=== PATIENT | male | born 1965 | race Caucasian/White ===

== ENCOUNTER 2018-05-30 11:55 | Emergency (ER) | payer OTHER ==
[~2018-05-30] VITALS: Ht 167.6 cm; Wt 86.2 kg
[2018-05-30] MEDS ORDERED: ALBU8HFA4 (12:03)
== END 2018-05-30 12:18 | disposition home or self-care (01) ==
LOC: ER 11:55
DX: H10.9 Unspecified conjunctivitis (principal); J06.9 Acute upper respiratory infection, unspecified; I10 Essential (primary) hypertension; J44.9 Chronic obstructive pulmonary disease, unspecified; Z88.0 Allergy status to penicillin
CPT/HCPCS: 99283; A4663

== ENCOUNTER 2018-07-04 04:02 | Emergency (ER) | payer OTHER ==
[~2018-07-04] VITALS: Ht 167.6 cm; Wt 86.2 kg
[~2018-07-04 04:02] MED LIST: ALBU8HFA4
[2018-07-04] MEDS ORDERED: LEVOFLOXACIN 750 MG TABLET PO ONE (04:30)
[2018-07-04] MEDS ORDERED: VANCOMYCIN IV 1,000 MG in IV DEXTROSE 5% 250 ML IV ONE (04:30)
--- NOTE | 2018-07-04 04:30 | NUR ---
Pt. ambulated into ED, c/o R hand pain, R hand is swollen, red, w/ abscess, pt. reports using a "dirty needle" for injectable IV methamphetamines, A/Ox3, pt. is drowsy but arousable, denies SOB/CP/HERNÁNDEZ/F/C/N/V,
[2018-07-04] MEDS ORDERED: LEVOFLOXACIN 750 MG TABLET ONE (04:32)
[2018-07-04] MEDS ORDERED: VANCOMYCIN IV 200 ML ONE (04:32)
--- NOTE | 2018-07-04 06:50 | NUR ---
Patient discharged to home in stable conditon. Written and verbal after care instructions given. Patient verbalizes understanding of instructions. Pt. d/c to home w/ prescriptions per MD order, no acute distress,
[2018-07-04 06:51] VITALS: BP 162/93
== END 2018-07-04 06:52 | disposition home or self-care (01) ==
LOC: ER 04:06
DX: L03.113 Cellulitis of right upper limb (principal); I10 Essential (primary) hypertension; J44.9 Chronic obstructive pulmonary disease, unspecified; F17.200 Nicotine dependence, unspecified, uncomplicated; F15.10 Other stimulant abuse, uncomplicated; Z88.0 Allergy status to penicillin
CPT/HCPCS: 73130; 96365; 96366; 99285; J3370; A4663

== ENCOUNTER 2018-07-07 20:04 | Emergency (ER) | payer OTHER ==
[~2018-07-07] VITALS: Ht 167.6 cm; Wt 86.2 kg
[2018-07-07] MEDS ORDERED: VANCOMYCIN IV 1,000 MG in IV DEXTROSE 5% 250 ML IV ONE (20:30)
[2018-07-07] MEDS ORDERED: VANCOMYCIN IV 200 ML ONE (20:38)
[2018-07-07] MEDS ORDERED: diphenhydrAMINE 50 MG/1 ML VIAL IV ONE (21:45)
[2018-07-07] MEDS ORDERED: diphenhydrAMINE 50 MG/1 ML VIAL ONE (21:48)
[2018-07-07 23:07] VITALS: BP 119/74
== END 2018-07-07 23:08 | disposition home or self-care (01) ==
LOC: ER 20:05
DX: L03.113 Cellulitis of right upper limb (principal); F17.200 Nicotine dependence, unspecified, uncomplicated; F15.10 Other stimulant abuse, uncomplicated; F12.10 Cannabis abuse, uncomplicated; F14.10 Cocaine abuse, uncomplicated; Z88.0 Allergy status to penicillin
CPT/HCPCS: 96365; 96366; 96375; 99285; J1200; J3370; A4663

== ENCOUNTER 2018-07-08 15:01 | Emergency (ER) | payer OTHER ==
[~2018-07-08] VITALS: Ht 167.6 cm; Wt 86.2 kg
--- NOTE | 2018-07-08 15:50 | NUR ---
Dr Cleary at the bedside for MSE.
[2018-07-08] MEDS ORDERED: VANCOMYCIN IV 200 ML ONE (15:58)
[2018-07-08] MEDS ORDERED: VANCOMYCIN IV 1,000 MG in IV DEXTROSE 5% 250 ML IV ONE (16:00)
--- NOTE | 2018-07-08 17:40 | NUR ---
Wound measuring done and dressing applied per MD request.
--- NOTE | 2018-07-08 18:10 | NUR ---
Spoke to Rep from [facility], and they spoke to hand surgeon for pt to be admitted/transfered to one of their facilities. Awaiting call back. Dinner provided for pt, ate w/ great appetite.
--- NOTE | 2018-07-08 18:30 | NUR ---
Dr Cleary spoke to Dr Jimenez @ [facility].
--- NOTE | 2018-07-08 18:45 | NUR ---
Hands off report given to fast food shift lead RN.
--- NOTE | 2018-07-08 19:05 | NUR ---
RECEIVED REPORT PATIENT REASSESSED, VSS, C/O PAIN IN RIGHT ARM 05/30, PATIENT TO BE TRANSFERRED FOR HAND SURGEON, [facility] CALLED WAITING FOR ACCEPTANCE, ER NOTIFIED OF PATIENT C/O FOR PAIN.
--- NOTE | 2018-07-08 19:25 | NUR ---
PATIENT REASSESSED BY DR CRUZ, PATIENT SLEEPING, ORDER FOR PAIN MEDS CANCELLED.
--- NOTE | 2018-07-08 20:28 | NUR ---
Jeanette from [facility] [facility] called to give ETA for transport @[phone]
--- NOTE | 2018-07-08 20:35 | NUR ---
REPORT CALLED TO [facility] BRUCE CANSECO. TRANSPORTATION ARRANGED, ETA [phone].
--- NOTE | 2018-07-08 20:38 | NUR ---
Accepting physician is Dr. Polo.
[2018-07-08] MEDS ORDERED: HYDROCODONE/APAP 10-325 MG TABLET PO ONE (21:15)
[2018-07-08] MEDS ORDERED: HYDROCODONE/APAP 10-325 MG TABLET ONE (21:24)
--- NOTE | 2018-07-08 21:29 | NUR ---
REPORT GIVEN TO AMBULANCE PERSONEL, PATIENT MEDICATED TO NORCO 10MG PO PRIOR TO DEPARTURE, VSS, NO DISTRESS NOTED AT TIME OF DISCHARGE.
== END 2018-07-08 21:40 | disposition short-term general hospital (02) ==
LOC: ER 15:02
DX: L03.113 Cellulitis of right upper limb (principal); L02.413 Cutaneous abscess of right upper limb; F17.200 Nicotine dependence, unspecified, uncomplicated; F12.10 Cannabis abuse, uncomplicated; F14.10 Cocaine abuse, uncomplicated; Z88.0 Allergy status to penicillin
CPT/HCPCS: 73200; 87070; 96365; 96366; 99285; J3370; A4663

== ENCOUNTER 2018-08-31 18:00 | Inpatient (IN) | payer OTHER ==
[~2018-08-31] VITALS: Ht 170.2 cm; Wt 86.2 kg
[~2018-08-31 18:00] MED LIST changes: +BREO ELLIPTA 200-25 MCG INH
[2018-08-31] MEDS ORDERED: IPRATROPIUM BROMIDE 0.5 MG/2.5 ML NEBU ONE (18:05)
[2018-08-31] MEDS ORDERED: ALBUTEROL SULFATE 2.5 MG/ 0.5 ML NEBU ONE (18:05)
[2018-08-31] MEDS ORDERED: methylPREDNISolone SOD SUCC 125 MG/2 ML VIAL IV ONE (18:15)
[2018-08-31] MEDS ORDERED: ALBUTEROL SULFATE 2.5 MG/3 ML NEBU NEB ONE (18:15)
[2018-08-31] MEDS ORDERED: IPRATROPIUM BROMIDE 0.5 MG/2.5 ML NEBU NEB ONE (18:15)
[2018-08-31] MEDS ORDERED: IV NORMAL SALINE 1000 ML BAG IV ONE ×2 (18:15→20:15)
[2018-08-31] MEDS ORDERED: TERBUTALINE SULFATE 1 MG/1 ML VIAL SQ ONE (18:15)
[2018-08-31] MEDS ORDERED: MAGNESIUM SULFATE 2 GM in IV DEXTROSE 5% 100 ML IV ONE (18:15)
[2018-08-31] MEDS ORDERED: TERBUTALINE SULFATE 1 MG/1 ML VIAL ONE (18:22)
[2018-08-31] MEDS ORDERED: methylPREDNISolone SOD SUCC 125 MG/2 ML VIAL ONE (18:22)
[2018-08-31 18:32] LABS: BASOPHILS # (AUTO) 0.2 K/uL (0.0-8.0); BASOPHILS % (AUTO) 1.1 % (0.0-2.0); EOSINOPHILS % (AUTO) 13.3 % (0.0-7.0); HEMATOCRIT 44.7 % (36.7-47.1); HEMOGLOBIN 15.9 g/dL (12.5-16.3); LYMPHOCYTES # (AUTO) 3.3 K/uL (20.0-40.0); LYMPHOCYTES % (AUTO) 21.6 % (20.5-51.5); MEAN CORPUSCULAR HEMOGLOBIN 31.9 uug (23.8-33.4); MEAN CORPUSCULAR HGB CONC 36 g/dL (32.5-36.3); MEAN CORPUSCULAR VOLUME 89.7 fL (73.0-96.2); MONOCYTES # (AUTO) 0.9 K/uL (2.0-10.0); MONOCYTES % (AUTO) 5.9 % (0.0-11.0); NEUTROPHILS # (AUTO) 8.9 K/uL (1.8-8.9); NEUTROPHILS % (AUTO) 58.1 % (38.5-71.5); PLATELET COUNT (AUTO) 213 K/uL (152-348); RED BLOOD CELL COUNT(AUTO) 4.99 MIL/uL (4.06-5.63); WHITE BLOOD COUNT (AUTO) 15.3 K/uL (3.6-10.2)
[2018-08-31 18:36] LABS: POTASSIUM 4.4 mmol/L (3.5-5.1)
[2018-08-31] MEDS ORDERED: MAGNESIUM SULFATE 1 GM/2 ML VIAL ONE (18:41)
--- NOTE | 2018-08-31 18:42 | NUR ---
PLACED PT ON BIPAP DUE TO IMPENDING RESP FAILURE. CONTINUOUS TX ALSO GIVEN AND PT LOOKED MORE STABLE NOW, ABG TO FOLLOW POST 45 MINUTES.
[2018-08-31 18:52] LABS: BILIRUBIN,DIRECT 0.1 mg/dL (0.0-0.2); BILIRUBIN,TOTAL 0.4 mg/dL (0.2-1.0); TOTAL PROTEIN, SERUM 8.2 g/dL (6.4-8.2)
[2018-08-31] MEDS ORDERED: MEROPENEM 1,000 MG in IV NORMAL SALINE 250 ML IV ONE (19:00)
[2018-08-31] MEDS ORDERED: VANCOMYCIN 1G/D5W 200 ML PIGGYBACK IV ONE (19:00)
[2018-08-31] MEDS ORDERED: VANCOMYCIN IV 200 ML ONE (19:09)
--- NOTE | 2018-08-31 19:12 | NUR ---
Patient is still for blood cultures draw, IV antibiotic therapy, ABG results & urine sample. Dr Evans said to draw the bloodcultures before starting the IV Vancomycin. Nursing hands off report given to HARLEEN Rios.
[2018-08-31 19:19] LABS: ETHANOL < 3 MG/DL (0-0)
[2018-08-31 19:25] LABS: ABG BASE EXCESS -4.4 mmol/L; ABG HCO3 21.5 mmol/L; ABG PCO2 42.7 mmHg (35.0-45.0); ABG PO2 168.3 mmHg (75.0-100.0); ABG SITE RIGHT RADIAL; VENT MODE BIPAP
--- NOTE | 2018-08-31 19:40 | NUR ---
ABG DONE ON BIPAP 15/5 ON 35%FIO2, NOT 100%FIO2
[2018-08-31] MEDS ORDERED: ASPIRIN 300 MG RECTAL SUPP RC ONE (19:45)
--- NOTE | 2018-08-31 19:46 | NUR ---
Pt. admitted to ccu , under care of Hair Rice NP. Dx: Acute Respiratory Failure/COPD Exacerbation Belongs List completed
--- NOTE | 2018-08-31 19:47 | NUR ---
Assumed care of pt., received report from Rebecca,
--- NOTE | 2018-08-31 20:11 | NUR ---
Gave report to Mariam, pt. to admit to CCU-4
--- NOTE | 2018-08-31 20:15 | NUR ---
Per ED MD, pt. does not meet "code sepsis" criteria, not sepsis.
--- NOTE | 2018-08-31 20:35 | NUR ---
Pt. taken off unit, admitted to CCU-4, no acute distress,
--- NOTE | 2018-08-31 20:50 | NUR ---
Admitted to CCU Room 4 per haider accompanied by ER staff. Services of [employer]/ALYCIA Rice, Dx: COPD exacerbation, acute respiratory failure. Pt lethargic, arousable, appears comfortable on BiPap. Routine CCU admission care rendered. Please see CCU admission profile. ALYCIA Rice notified of admission. No family or significant other available at this time.
[2018-08-31 21:00] VITALS: BP 147/69
[2018-08-31] MEDS ORDERED: ALBUTEROL SULFATE 2.5 MG/ 0.5 ML NEBU NEB PRN (21:00)
[2018-08-31] MEDS ORDERED: ACETAMINOPHEN 325 MG TABLET PO PRN (21:00)
[2018-08-31] MEDS ORDERED: IPRATROPIUM BROMIDE 0.5 MG/2.5 ML NEBU NEB PRN (21:00)
[2018-08-31] MEDS ORDERED: ZOLPIDEM 5 MG TABLET PO PRN (21:00)
[2018-08-31] MEDS ORDERED: ONDANSETRON 4 MG/2 ML VIAL IV PRN (21:00)
[2018-08-31] MEDS ORDERED: HYDROCODONE/APAP 5-325MG TABLET PO PRN (21:00)
[2018-08-31] MEDS ORDERED: MAGNESIUM HYDROXIDE 30 ML LIQUID UDC PO PRN (21:00)
--- NOTE | 2018-08-31 21:00 | NUR ---
Confirmed with TECHNICAL STENOGRAPHER need to infuse NS 1.7L more per ER MD order, carried out. New IV access established at left upper arm, site patent.
[2018-08-31 21:30] VITALS: BP 126/66
--- NOTE | 2018-08-31 21:30 | NUR ---
After adequate explanations, Arora cath Fr.16 was inserted atraumatically and aseptically with immediate return of clear eva urine; pt tolerated procedure well.
[2018-08-31] MEDS ORDERED: MEROPENEM 1 G VIAL IV ONE (21:55)
[2018-08-31 22:00] VITALS: BP 135/87
[2018-08-31] MEDS ORDERED: ENOXAPARIN SODIUM 40 MG/0.4 ML DISP.SYRIN SQ ONE (22:00)
[2018-08-31 22:30] VITALS: BP 132/72
--- NOTE | 2018-08-31 22:30 | NUR ---
ALYCIA Rice here for pt evaluation. Condition update given, also made aware of critical/increasing trends of troponin and lactic acid. No new orders at this time.
--- NOTE | 2018-08-31 22:45 | NUR ---
Pt's sister Bg called in for update, will be in to see pt in AM.
[2018-08-31 23:00] VITALS: BP 130/61
[2018-08-31] MEDS: methylPREDNISolone SOD SUCC 125 MG/2 ML VIAL IV SCH (23:15)
[2018-08-31 23:59] VITALS: BP 131/62
[2018-09-01] VITALS (20 sets, daily range): BP systolic 119–162; BP diastolic 59–81
[2018-09-01] MEDS: IV NS 1000 ML 1,000 ML IV PRN ×2 (00:13→13:55)
--- NOTE | 2018-09-01 00:30 | NUR ---
Continues to rest comfortably. Monitor SR with no ectopy. Stable VS. Aspiration precautions and nursing comfort measures observed at all times.
[2018-09-01 01:11] LABS: *BILIRUBIN,URIN NEGATIVE (NEGATIVE); *BLOOD, URINE Trace-intact (NEGATIVE); *CLARITY,URINE CLEAR (CLEAR); *COLOR,URINE YELLOW (YELLOW); *KETONES,URINE TRACE (NEGATIVE); *PROTEIN,URINE 1+ (NEGATIVE); *UROBILINOGEN,URINE 0.2 E.U./dl (NORMAL); LEUKOCYTE ESTERASE ,URINE NEGATIVE (NEGATIVE); NITRITE, URINE NEGATIVE (NEGATIVE); PH,URINE 5.5 (5.0-8.0); UGLUCOSE TRACE (NEGATIVE)
[2018-09-01 01:16] LABS: BACTERIA,URINE NONE SEEN /HPF (NONE SEEN); MUCUS,URINE FEW /LPF (0-FEW); RED BLOOD CELL CASTS,URINE 0-3 /LPF (NONE SEEN); SQUAMOUS EPITHELIAL CELL,UR FEW /HPF (NONE SEEN)
--- NOTE | 2018-09-01 04:30 | NUR ---
Lab works drawn by lab, very hard stick. Easier to arouse, helps turn/reposition in bed. Noted to guard the BiPap well. Admits to sleeping better with the BiPap. Informed of ALYCIA Rice's plan to do sleep studies as an outpatient.
[2018-09-01 04:57] LABS: BASOPHILS % (AUTO) 0.1 % (0.0-2.0); EOSINOPHILS % (AUTO) 0.3 % (0.0-7.0); HEMOGLOBIN 13.9 g/dL (12.5-16.3); LYMPHOCYTES # (AUTO) 0.9 K/uL (20.0-40.0); LYMPHOCYTES % (AUTO) 17.8 % (20.5-51.5); MEAN CORPUSCULAR HEMOGLOBIN 31.6 uug (23.8-33.4); MEAN CORPUSCULAR HGB CONC 35 g/dL (32.5-36.3); MEAN CORPUSCULAR VOLUME 91.1 fL (73.0-96.2); MONOCYTES # (AUTO) 0.1 K/uL (2.0-10.0); NEUTROPHILS # (AUTO) 4.3 K/uL (1.8-8.9); NEUTROPHILS % (AUTO) 80.8 % (38.5-71.5); PLATELET COUNT (AUTO) 168 K/uL (152-348); RED BLOOD CELL COUNT(AUTO) 4.39 MIL/uL (4.06-5.63); WHITE BLOOD COUNT (AUTO) 5.3 K/uL (3.6-10.2)
[2018-09-01 05:06] LABS: CREATININE 0.9 mg/dL (0.6-1.3); MAGNESIUM 2.2 mg/dL (1.8-2.4); PHOSPHOROUS 2.2 mg/dL (2.5-4.9); POTASSIUM 4.1 mmol/L (3.5-5.1)
[2018-09-01] MEDS: methylPREDNISolone SOD SUCC 125 MG/2 ML VIAL IV SCH ×3 (05:39→21:07)
[2018-09-01 06:19] LABS: *AMPHETAMINE, URINE POSITIVE (NEGATIVE); *BARBITURATE, URINE NEGATIVE (NEGATIVE); *CANNABINOID, URINE NEGATIVE (NEGATIVE); *COCCAINE, URINE NEGATIVE (NEGATIVE); *OPIATE, URINE POSITIVE (NEGATIVE); *PHENCYCLIDINE SCREEN,URINE NEGATIVE (NEGATIVE)
--- NOTE | 2018-09-01 06:30 | NUR ---
General condition unchanged. Stable rhythm and VS. Remains comfortable on BiPap. Please see CCU flowsheet for trends and clinical data.
--- NOTE | 2018-09-01 07:30 | NUR ---
Report received from Jackelyn CANSECO, 53 yr old male was admitted on 08/31/18 for acute exacerbation of COPD. on BIPAP all night.IV fluid NS infusing at 75ml/hr Addendum: 09/01/18 at 0854 by VINOD PEREZ RN Amended: Links added.
--- NOTE | 2018-09-01 08:30 | NUR ---
placed on o2 2liters nasal cannula. post breathing treatment Addendum: 09/01/18 at 0916 by VINOD PEREZ RN Amended: Links added.
--- NOTE | 2018-09-01 09:40 | NUR ---
PT WAS TAKEN OFF BIPAP AFTER IN LINE TX. PT IS AWAKE, ALERT AND RESPONSIVE WITH NO DISTRESS. HARLEEN BROCK INFORMED AND AGREED WITH WEANING. WILL MONITOR PT CLOSELY
--- NOTE | 2018-09-01 11:22 | NUR ---
Call to ALYCIA gaston diet order. orders received.cardiac diet order ed Addendum: 09/01/18 at 1128 by VINOD PEREZ RN Amended: Links added.
--- NOTE | 2018-09-01 12:00 | NUR ---
now, tele status. cardiac tray ordered for lunch. remains lethargic. prefers to sleep than eat Addendum: 09/01/18 at 1241 by VINOD PEREZ RN Amended: Links added.
[2018-09-01 13:40] LABS: ABG BASE EXCESS -1.2 mmol/L; ABG HCO3 23.3 mmol/L; ABG PCO2 38.7 mmHg (35.0-45.0); ABG PH 7.398 (7.350-7.450); ABG PO2 63.5 mmHg (75.0-100.0); ABG SITE RIGHT RADIAL; ABG TOTAL HEMOGLOBIN 14.6 G/dL (13.5-18.0); COHb 1.4 % (0.5-1.5); MetHb 0.3 % (0.0-1.5); O2Hb 92.3 % (94.0-97.0); VENT MODE Nasal Cannula
--- NOTE | 2018-09-01 14:11 | NUR ---
seen by dr durand. stat abg done on 2 liters nasal cannula. Addendum: 09/01/18 at 1416 by VINOD PEREZ RN Amended: Links added. Addendum: 09/01/18 at 1417 by VINOD PEREZ RN Amended: Links added.
--- NOTE | 2018-09-01 14:17 | NUR ---
awake and hungry. lunch tray served Addendum: 09/01/18 at 1417 by VINOD PEREZ RN Amended: Links added.
--- NOTE | 2018-09-01 15:25 | NUR ---
Received patient from CCU, patient alert and oriented x 4, not in any form of distress. Noted with oxygen support at 2lpm via nasal cannula, tolerated and maintained, oxygen saturation at 98%. With ongoing IVF at IV access at right antecubital vein, infusing well. Noted with another IV access at left upper arm to saline lock, patent and intact. With Arora catheter to urine bag, draining clear yellow urine. Noted with SCD on both legs, maintained. Oriented to unit. Bed in low position, side rails up x 2, call light within reach. will continue to monitor. Respiratory therapist informed of transfer so they can continue patient's breathing treatments.
--- NOTE | 2018-09-01 15:26 | NUR ---
[facility]. Patient ambulated to the room report given to Velma CANSECO. belonging checklist signed by carole CANSECO Addendum: 09/01/18 at 1526 by VINOD PEREZ RN Amended: Links added.
[2018-09-01] MEDS: IPRATROPIUM BROMIDE 0.5 MG/2.5 ML NEBU NEB SCH ×3 (16:26→23:38)
[2018-09-01] MEDS: ALBUTEROL SULFATE 2.5 MG/ 0.5 ML NEBU NEB SCH ×3 (16:26→23:38)
--- NOTE | 2018-09-01 16:58 | NUR ---
Patient on tele monitor is sinus arrhythmia, heart rate as low as 38 and highest rate is 105, asymptomatic. Whitney Rice DNP notified and noted these changes. Will continue to monitor patient.
--- NOTE | 2018-09-01 20:00 | NUR ---
Received patient awake having breathing treatment. No SOB denies chest pain. Vital signs WNL, sinus rhythm on monitor HR 92 bpm. IVF NS infusing well.
--- NOTE | 2018-09-01 20:05 | NUR ---
Report given to HARLEEN Barrett
[2018-09-01] MEDS ORDERED: ENOXAPARIN SODIUM 40 MG/0.4 ML DISP.SYRIN SQ SCH (21:00)
[2018-09-02] VITALS: BP 116/81
[2018-09-02] MEDS: IV NS 1000 ML 1,000 ML IV PRN (02:07)
[2018-09-02] MEDS: ALBUTEROL SULFATE 2.5 MG/ 0.5 ML NEBU NEB SCH ×4 (02:45→15:01)
[2018-09-02] MEDS: IPRATROPIUM BROMIDE 0.5 MG/2.5 ML NEBU NEB SCH ×4 (02:45→15:01)
[2018-09-02 04:00] VITALS: BP 153/92
[2018-09-02] MEDS: methylPREDNISolone SOD SUCC 125 MG/2 ML VIAL IV SCH ×2 (05:24→13:34)
--- NOTE | 2018-09-02 06:25 | NUR ---
END OF SHIFT REPORT Patient rested well in between care; no acute distress; SR/SB on tele; ate ice cream last night and this AM; repositioned for comfort; needs attended;
[2018-09-02 06:37] LABS: BASOPHILS % (AUTO) 0.1 % (0.0-2.0); HEMATOCRIT 43.7 % (36.7-47.1); HEMOGLOBIN 15.2 g/dL (12.5-16.3); LYMPHOCYTES # (AUTO) 1.4 K/uL (20.0-40.0); LYMPHOCYTES % (AUTO) 8.8 % (20.5-51.5); MEAN CORPUSCULAR HEMOGLOBIN 32.2 uug (23.8-33.4); MEAN CORPUSCULAR HGB CONC 35 g/dL (32.5-36.3); MEAN CORPUSCULAR VOLUME 92.3 fL (73.0-96.2); MONOCYTES # (AUTO) 0.7 K/uL (2.0-10.0); MONOCYTES % (AUTO) 4.3 % (0.0-11.0); NEUTROPHILS # (AUTO) 13.8 K/uL (1.8-8.9); NEUTROPHILS % (AUTO) 86.8 % (38.5-71.5); PLATELET COUNT (AUTO) 220 K/uL (152-348); RED BLOOD CELL COUNT(AUTO) 4.74 MIL/uL (4.06-5.63); WHITE BLOOD COUNT (AUTO) 15.9 K/uL (3.6-10.2)
[2018-09-02 07:13] LABS: CREATININE 0.9 mg/dL (0.6-1.3); MAGNESIUM 2.3 mg/dL (1.8-2.4); PHOSPHOROUS 2.6 mg/dL (2.5-4.9); POTASSIUM 4.3 mmol/L (3.5-5.1)
--- NOTE | 2018-09-02 07:28 | NUR ---
RESTING COMFORTABLY IN BED WITH EYES CLOSED ON 1.5 L O2 VIA NC SATURATING AT 97%. SR/ST ON MONITOR. CONTINUE WITH TELE MONITORING ORDERED
--- NOTE | 2018-09-02 08:52 | NUR ---
SEEN BY DR JEFF NOTED LABS WITH ORDER FOR I UNIT OF [facility] TO BE TRANSFUSED Addendum: 09/02/18 at 0853 by TRICIA BERKOWITZ RN ERROR
[2018-09-02] MEDS ORDERED: FLUTICASONE/VILANTEROL 1 EACH BLST.W.DEV INH SCH (09:00)
[2018-09-02 11:04] VITALS: BP 146/74
--- NOTE | 2018-09-02 12:00 | NUR ---
SEEN BY DR SORENSEN SEE NOTES
--- NOTE | 2018-09-02 13:30 | NUR ---
SEEN BY ALYCIA WONG WITH DC ORDER, CM MADE AWARE OF DISCHARGE. MILLY PATINO.
[2018-09-02] MEDS ORDERED: METH4TAB3 PO (14:41)
[2018-09-02] MEDS ORDERED: ALBU2.5V38 IH (14:41)
[2018-09-02] MEDS ORDERED: FLUT1BLS4 IH (14:41)
--- NOTE | 2018-09-02 16:11 | NUR ---
PATIENT VOIDING WITHOUT DIFFICULTY, DC INSTRUCTION WITH MEDS WITH PHARMACY AND FOLLOW-UP INSTRUCTION WITH PCP GIVEN
== END 2018-09-02 16:17 | disposition home or self-care (01) | DRG 140 ==
LOC: ER 18:01 → CCU 20:09 → TELE 09-01 15:15
PROVIDERS: ADMIT Nurse Practitioner Acute Care; ATTEND Nurse Practitioner Acute Care
PROC: 5A09357 Assistance with Respiratory Ventilation, Less than 24 Consecutive Hours, Continuous Positive Airway Pressure (ICD-10-PCS; principal; 2018-08-31)
DX: J44.1 Chronic obstructive pulmonary disease with (acute) exacerbation (principal); J96.01 Acute respiratory failure with hypoxia; I21.4 Non-ST elevation (NSTEMI) myocardial infarction; F17.200 Nicotine dependence, unspecified, uncomplicated; D72.829 Elevated white blood cell count, unspecified; R73.9 Hyperglycemia, unspecified; F15.10 Other stimulant abuse, uncomplicated
CPT/HCPCS: 36415; 36600; 70030-TC; 71045; 80307; 83605; 83735; 84100; 85025; 87040; 87086; 93005; 93307; 94640; 94660; 94664; A4663; G0378; G0480; J1650; J2185; J2930; J3105; J3370; J3475; J3490; J3590; J7030